=== PATIENT | male | born 1945 | race Caucasian/White ===

== ENCOUNTER → 2017-08-20 | Outpatient (CLI) | payer MEDICARE, OTHER ==
[~2017-08-20] MED LIST: LOSARTAN-HCTZ1 EAC2 PO; MELOXICAM15 MG PO; NEXIUM40 MG PO; PERCOCET 5/31 TABLET PO
== END | disposition home or self-care (01) ==
LOC: CDC 09:44
DX: Z01.810 Encounter for preprocedural cardiovascular examination (principal); K40.90 Unilateral inguinal hernia, without obstruction or gangrene, not specified as recurrent; I44.4 Left anterior fascicular block; R94.31 Abnormal electrocardiogram [ECG] [EKG]
CPT/HCPCS: 93000